=== PATIENT | male | born 1980 | race Caucasian/White ===

== ENCOUNTER 2022-10-25 08:51 | Emergency (ER) | payer BC ==
[~2022-10-25] VITALS: Ht 182.9 cm; Wt 124.7 kg
[2022-10-25 09:07] VITALS: BP 165/117
[2022-10-25] MEDS ORDERED: PRED20 PO (09:32)
[2022-10-25] MEDS ORDERED: ACYC800 PO (09:32)
[2022-10-25] MEDS ORDERED: ARTIFICIAL TEAR15 M2 LEFTEYE (09:32)
== END 2022-10-25 10:15 | disposition home or self-care (01) ==
LOC: ER 08:51
DX: G51.0 Bell's palsy (principal); E11.9 Type 2 diabetes mellitus without complications
CPT/HCPCS: 99283; A9270; J7512